=== PATIENT | female | born 1995 | race American Indian/Alaskan Native ===

== ENCOUNTER 2020-08-18 18:26 | Emergency (ER) | payer OTHER ==
--- NOTE | 2020-08-18 22:13 | Emergency Department Report ---
ED General Adult HPI - General Chief complaint: Sore Throat Stated complaint: RED DOTS ON TONGUE/TONSILS WHITE SPOTS Source: patient Mode of arrival: Ambulatory Limitations: No Limitations - History of Present Illness Initial comments: Patient is a nulliparous 24-year-old -[place] female with no past medical history who presents to the ED with complaint of acute onset persistent white ulcerated lesion on the tongue and some white exudates on the tonsils for the last 2 days. Patient denies sore throat, dysphagia, nasal and sinus congestion, dizziness, syncope, fever, chills, nausea and vomiting, cough or headache. MD Complaint: Tonsillar exudates; White patches on tongue -: Sudden, days(s) (2) Location: mouth Radiation: non-radiation Severity scale (0 -10): 0 Quality: dull Consistency: constant Improves with: none Worsens with: none Associated Symptoms: denies: denies other symptoms, confusion, chest pain, co ugh, diaphoresis, fever/chills, headaches, loss of appetite, malaise, nausea/vomiting, rash, shortness of breath, syncope, weakness, other Treatments Prior to Arrival: none - Related Data Previous Rx's Medication Instructions Recorded Last Taken Type Nystatin [Nystatin SUSP] 10 ml PO BID #140 ml 08/18/20 Unknown Rx Allergies Allergy/AdvReac Type Severity Reaction Status Date / Time No Known Allergies Allergy Unverified 08/18/20 19:16 ED Review of Systems ROS: Stated complaint: RED DOTS ON TONGUE/TONSILS WHITE SPOTS Other details as noted in HPI Constitutional: denies: chills, fever Eyes: denies: eye pain, eye discharge, vision change ENT: other (Right ulcerated lesions on the time with tonsillar exudates). denies: ear pain, throat pain, dental pain, hearing loss, epistaxis Respiratory: denies: cough, shortness of breath, wheezing Cardiovascular: denies: chest pain, palpitations Endocrine: no symptoms reported Gastrointestinal: denies: abdominal pain, nausea, diarrhea Genitourinary: denies: urgency, dysuria, discharge Musculoskeletal: denies: back pain, joint swelling, arthralgia Skin: denies: rash, lesions Neurological: denies: headache, weakness, paresthesias Psychiatric: denies: anxiety, depression Hematological/Lymphatic: denies: easy bleeding, easy bruising ED Past Medical Hx - Past Medical History Previous Medical History?: No - Surgical History Past Surgical History?: No - Social History Smoking Status: Never Smoker Substance Use Type: Alcohol, Marijuana - Medications Home Medications: Home Medications Medication Instructions Recorded Confirmed Last Taken Type Nystatin [Nystatin SUSP] 10 ml PO BID #140 ml 08/18/20 Unknown Rx ED Physical Exam - General Limitations: No Limitations General appearance: alert, in no apparent distress - Head Head exam: Present: atraumatic, normocephalic, normal inspection - Eye Eye exam: Present: normal appearance, PERRL, EOMI Pupils: Present: normal accommodation - ENT ENT exam: Present: mucous membranes moist, TM's normal bilaterally, normal external ear exam, other (Mild ulcerated white lesions on the tongue, mild white tonsillar exudates) - Neck Neck exam: Present: normal inspection, full ROM. Absent: lymphadenopathy - Respiratory Respiratory exam: Present: normal lung sounds bilaterally. Absent: respiratory distress, wheezes, rhonchi, chest wall tenderness, accessory muscle use, prolonged expiratory, other - Cardiovascular Cardiovascular Exam: Present: regular rate, normal rhythm, normal heart sounds. Absent: systolic murmur, diastolic murmur, rubs, gallop - GI/Abdominal GI/Abdominal exam: Present: soft, normal bowel sounds. Absent: tenderness, guarding, rebound, hyperactive bowel sounds, hypoactive bowel sounds - Extremities Exam Extremities exam: Present: normal inspection, full ROM, normal capillary refill - Back Exam Back exam: Present: normal inspection, full ROM. Absent: tenderness, CVA tenderness (R), CVA tenderness (L), muscle spasm, paraspinal tenderness, vertebral tenderness - Neurological Exam Neurological exam: Present: alert, oriented X3, CN II-XII intact, normal gait, reflexes normal - Psychiatric Psychiatric exam: Present: normal affect, normal mood - Skin Skin exam: Present: warm, dry, intact, normal color. Absent: rash ED Course Vital Signs 08/18/20 19:17 Temperature 98.0 F Pulse Rate 84 Respiratory 17 Rate Blood Pressure 143/68 O2 Sat by Pulse 98 Oximetry ED Medical Decision Making - Medical Decision Making This is a nulliparous 24-year-old -[place] female with no past medical history who presents to the ED with complaint of acute onset persistent white ulcerated lesion on the tongue and some white exudates on the tonsils for the last 2 days. In the ED, patient is alert and oriented x3 and is not in distress. Based on the physical exam findings, the patient symptoms are likely fungal lesions on the time and on the product. Patient was discharged home on medications and advised to follow-up with her primary care physician in 7 to 10 days for reevaluation or return to the ED immediately if symptoms get worse. - Differential Diagnosis Oral Critical care attestation.: If time is entered above; I have spent that time in minutes in the direct care of this critically ill patient, excluding procedure time. ED Disposition Clinical Impression: Oral mucosal lesion, Oral candidiasis Disposition: TO HOME OR SELFCARE Is pt being admited?: No Does the pt Need Aspirin: No Condition: Stable Instructions: Oral Thrush, Adult, [id number] Additional Instructions: Take medication as advised, drink plenty of fluids and follow-up with your primary care physician in 7 to 10 days for reevaluation. Return to the ED immediately if symptoms get worse. Prescriptions: Nystatin [Nystatin SUSP] 10 ml PO BID #140 ml Referrals: [facility] [Provider Group] - 3-5 Days Time of Disposition: 22:14 Print Language: ARABIC
[2020-08-18 23:52] VITALS: BP 120/70
== END 2020-08-18 22:55 | disposition home or self-care (01) ==
LOC: ED 18:26
DX: B37.0 Candidal stomatitis (principal)
CPT/HCPCS: 99282

== ENCOUNTER 2020-12-09 13:22 | Emergency (ER) | payer OTHER ==
[2020-12-09 13:45] VITALS: BP 132/70
[2020-12-09 14:26] LABS: Bilirubin,Urine NEG (Negative); Blood,Urine NEG (Negative); Color,Urine Yellow (Yellow); Mucus,Urine FEW /HPF; Protein,Urine <15 mg/dL mg/dL (Negative); Urobilinogen,Urine < 2.0 mg/dL (<2.0)
[2020-12-09 14:29] LABS: HCG Qualitative,Urine Negative (Negative); WBC,Urine < 1.0 /HPF (0.0-6.0)
--- NOTE | 2020-12-09 17:15 | Emergency Department Report ---
ED Female HPI - General Chief complaint: Urogenital-Female Stated complaint: VAGINAL PAIN Time Seen by Provider: 12/09/20 14:09 Source: patient Mode of arrival: Ambulatory Limitations: No Limitations - History of Present Illness Initial comments: Patient is a 25-year-old female who presents emergency room with complaints of vaginal blisters that began 5 days ago. She states that her menstrual cycle just ended yesterday. She denies any abdominal pain, back pain, vaginal discharge, dysuria, urinary symptoms. She states that when she wipes in the region of the blister she feels irritation. She denies ever having this in the past. She states that on November 25 she had a full STD panel including HIV, syphilis, gonorrhea, chlamydia, she states that she was negative for those. She states that she had a new sexual partner after having the STD panel and did this unprotectedfew days later began to notice the blistering. She denies any dysuria, fever, nausea, vomiting, diarrhea. No past medical history. No allergies medications. - Related Data Previous Rx's Medication Instructions Recorded Last Taken Type Nystatin [Nystatin SUSP] 10 ml PO BID #140 ml 08/18/20 Unknown Rx Acyclovir 400 mg PO TID 7 Days #21 tablet 12/09/20 Unknown Rx Lidocaine [Lidocaine GEL] 1 applicatio TP BID #10 gel..gram. 12/09/20 Unknown Rx Allergies Allergy/AdvReac Type Severity Reaction Status Date / Time No Known Allergies Allergy Unverified 08/18/20 19:16 ED Review of Systems ROS: Stated complaint: VAGINAL PAIN Other details as noted in HPI Comment: All other systems reviewed and negative ED Past Medical Hx - Past Medical History Previous Medical History?: No - Surgical History Past Surgical History?: No - Social History Smoking Status: Never Smoker Substance Use Type: Alcohol, Marijuana - Medications Home Medications: Home Medications Medication Instructions Recorded Confirmed Last Taken Type Nystatin [Nystatin SUSP] 10 ml PO BID #140 ml 08/18/20 Unknown Rx Acyclovir 400 mg PO TID 7 Days #21 tablet 12/09/20 Unknown Rx Lidocaine [Lidocaine GEL] 1 applicatio TP BID #10 gel..gram. 12/09/20 Unknown Rx ED Physical Exam - General Limitations: No Limitations General appearance: alert, in no apparent distress - Head Head exam: Present: atraumatic, normocephalic - Eye Eye exam: Present: normal appearance - ENT ENT exam: Present: mucous membranes moist - Respiratory Respiratory exam: Absent: respiratory distress, accessory muscle use - GI/Abdominal GI/Abdominal exam: Present: soft. Absent: distended, tenderness, guarding, rebound, rigid - External exam: Present: other (plant changer: juan david mcgrath, there is a 0.5 cm shallow ulceration present to the perineum, no other signs of any blistering, no visualized vaginal discharge, no signs of skin infection around ulceration) Speculum exam: Present: other (pt deferred speculum examination) - Neurological Exam Neurological exam: Present: alert, oriented X3 - Psychiatric Psychiatric exam: Present: normal affect, normal mood - Skin Skin exam: Present: warm, dry ED Course Vital Signs 12/09/20 13:41 Temperature 97.9 F Pulse Rate 67 Respiratory 16 Rate Blood Pressure 132/70 [Right] O2 Sat by Pulse 99 Oximetry ED Medical Decision Making - Medical Decision Making Patient is a 25-year-old female who presents emergency room with complaints of vaginal blisters that began 5 days ago. She states that her menstrual cycle just ended yesterday. She denies any abdominal pain, back pain, vaginal discharge, dysuria, urinary symptoms. She states that when she wipes in the region of the blister she feels irritation. She denies ever having this in the past. She states that on November 25 she had a full STD panel including HIV, syphilis, gonorrhea, chlamydia, she states that she was negative for those. She states that she had a new sexual partner after having the STD panel and did this unprotectedfew days later began to notice the blistering. She denies any dysuria, fever, nausea, vomiting, diarrhea. No past medical history. No allergies medications. Vitals are normal. On exam:plant changer: juan david mcgrath, there is a 0.5 cm shallow ulceration present to the perineum, no other signs of any blistering, no visualized vaginal discharge, no signs of skin infection around ulceration. Offered speculum examination to patient and wet prep and GC swabs, she politely declined. Given that patient has had a new sexual partner unprotected, ulceration could represent HSV. Could also be due to friction. Advised patient to follow-up with the [facility] or clinic in order to receive a full STD panel. Offered patient prophylactic treatment for HSV, she states that she would like the treatment. Patient given prescription for acyclovir and lidocaine gel. Advised patient Please use medication as prescribed. Please have a full STD panel performed by health department or clinic. Please have any partner tested and treated as well. Avoid sexual intercourse. Return to emergency room for any worsening symptoms. Critical care attestation.: If time is entered above; I have spent that time in minutes in the direct care of this critically ill patient, excluding procedure time. ED Disposition Clinical Impression: Vaginal ulceration Disposition: DC- TO HOME OR SELFCARE Is pt being admited?: No Does the pt Need Aspirin: No Condition: Stable Additional Instructions: Please use medication as prescribed. Please have a full STD panel performed by health department or clinic. Please have any partner tested and treated as well. Avoid sexual intercourse. Return to emergency room for any worsening symptoms. [facility] STD testing service in [place], [place] Address: [address] [place] [address] [place] STD testing service in [place], [place] Located in: [facility] Address: [address] [place] [address] [employer] in [place], [place] Address: [address] [place] [address] Prescriptions: Acyclovir 400 mg PO TID 7 Days #21 tablet Lidocaine [Lidocaine GEL] 1 applicatio TP BID #10 gel..gram. Referrals: [facility] [Outside] - 2-3 Days Time of Disposition: 17:17 Print Language: WALLISIAN
== END 2020-12-09 16:30 | disposition home or self-care (01) ==
LOC: ED 13:22
DX: N76.5 Ulceration of vagina (principal); F12.10 Cannabis abuse, uncomplicated; Z79.899 Other long term (current) drug therapy
CPT/HCPCS: 81001; 81025